=== PATIENT | female | born 1985 | race Caucasian/White ===

== ENCOUNTER 2021-07-18 08:21 | Observation (INO) | payer OTHER ==
[~2021-07-18] VITALS: Ht 170.2 cm; Wt 85.0 kg
--- NOTE | 2021-07-18 08:41 | ED.ADGEN ---
Past Medical History Past Medical History: Migraines Additional Past Medical Histor: Celiac disease General Adult EDM: Chief Complaint: CHEST WALL PAIN HPI: HPI: Patient is a 36-year-old female who arrives ambulatory to the emergency department complaining of substernal chest pain which began yesterday evening. Patient describes her pain as substernal in nature with radiation into her back at the left side. Patient also states that she has radiation across the left side of her chest. Patient states this pain became more robust this morning and the patient is not experiencing shortness of air. She states that her shortness of air is increased with talking in excess or exertion. The patient does report to receiving her booster shot for coronavirus yesterday afternoon however she tolerated that very well did not have any symptoms. She denies any history of fever or cardiac disease otherwise. She further denies any history of blood clots, cough or congestion. She additionally denies any history of fever. She is awake, alert and uncomfortable appearing. Review of Systems: Review of Systems: Constitutional: Denies fever or chills. [] Eyes: Denies change in visual acuity. [] HENT: Denies nasal congestion or sore throat. [] Respiratory: Reports exertional dyspnea. Denies cough. [] Cardiovascular: Reports chest pain and exertional dyspnea. [] GI: Denies abdominal pain, nausea, vomiting, bloody stools or diarrhea. [] : Denies dysuria. [] Musculoskeletal: Denies back pain or joint pain. [] Integument: Denies rash. [] Neurologic: Denies headache, focal weakness or sensory changes. [] Endocrine: Denies polyuria or polydipsia. [] Lymphatic: Denies swollen glands. [] Psychiatric: Denies depression or anxiety. [] Current Medications: Current Medications Medications (Trade) Dose Ordered Sig/Monserrat Start Time Stop Time Status Last Admin Dose Admin Aspirin (Aspirin Chewable) 324 mg 1X ONCE 07/18/21 08:45 07/18/21 08:46 DC 07/18/21 08:52 324 MG Morphine Sulfate (Morphine Sulfate) 4 mg PRN Q2HR PRN 07/18/21 10:00 07/19/21 09:59 Ondansetron HCl (Zofran) 4 mg PRN Q8HRS PRN 07/18/21 10:00 07/19/21 09:59 Allergies: Allergies: Allergies Coded Allergies Type Severity Reaction Last Updated Verified Penicillins Allergy Intermediate 07/18/21 Yes Sulfa (Sulfonamide Antibiotics) Allergy Intermediate 07/18/21 Yes latex Allergy Intermediate 07/18/21 Yes Physical Exam: PE: Constitutional: Uncomfortable appearing. Well developed, well nourished, non- toxic appearance. [] HENT: Normocephalic, atraumatic, bilateral external ears normal, oropharynx moist, no oral exudates, nose normal. [] Eyes: PERRLA, EOMI, conjunctiva normal, no discharge. [] Neck: Normal range of motion, no tenderness, supple, no stridor. [] Cardiovascular:Heart rate regular rhythm, no murmur [] Lungs & Thorax: Mild respiratory distress. Bilateral breath sounds clear to auscultation [] Abdomen: Bowel sounds normal, soft, no tenderness, no masses, no pulsatile masses. [] Skin: Warm, dry, no erythema, no rash. [] Back: No tenderness, no CVA tenderness. [] Extremities: No tenderness, no cyanosis, no clubbing, ROM intact, no edema. [] Neurologic: Alert and oriented X 3, normal motor function, normal sensory f unction, no focal deficits noted. [] Psychologic: Affect normal, judgement normal, mood normal. [] Current Patient Data: Labs: Laboratory Tests Test 07/18/21 08:40 White Blood Count 6.2 x10^3/uL (4.0-11.0) Red Blood Count 4.59 x10^6/uL (3.50-5.40) Hemoglobin 13.5 g/dL (12.0-15.5) Hematocrit 40.0 % (36.0-47.0) Mean Corpuscular Volume 87 fL (79-100) Mean Corpuscular Hemoglobin 29 pg (25-35) Mean Corpuscular Hemoglobin Concent 34 g/dL (31-37) Red Cell Distribution Width 14.0 % (11.5-14.5) Platelet Count 221 x10^3/uL (140-400) Neutrophils (%) (Auto) 74 % (31-73) H Lymphocytes (%) (Auto) 18 % (24-48) L Monocytes (%) (Auto) 5 % (0-9) Eosinophils (%) (Auto) 3 % (0-3) Basophils (%) (Auto) 0 % (0-3) Neutrophils # (Auto) 4.6 x10^3/uL (1.8-7.7) Lymphocytes # (Auto) 1.1 x10^3/uL (1.0-4.8) Monocytes # (Auto) 0.3 x10^3/uL (0.0-1.1) Eosinophils # (Auto) 0.2 x10^3/uL (0.0-0.7) Basophils # (Auto) 0.0 x10^3/uL (0.0-0.2) Maternal Serum HCG Beta Subunit < 1 mIU/mL (0-5) Sodium Level 139 mmol/L (136-145) Potassium Level 3.5 mmol/L (3.5-5.1) Chloride Level 104 mmol/L (98-107) Carbon Dioxide Level 27 mmol/L (21-32) Anion Gap 8 (6-14) Blood Urea Nitrogen 15 mg/dL (7-20) Creatinine 1.0 mg/dL (0.6-1.0) Estimated GFR (Cockcroft-Gault) 62.1 BUN/Creatinine Ratio 15 (6-20) Glucose Level 95 mg/dL (70-99) Calcium Level 8.7 mg/dL (8.5-10.1) Total Bilirubin 0.4 mg/dL (0.2-1.0) Aspartate Amino Transferase (AST) 18 U/L (15-37) Alanine Aminotransferase (ALT) 23 U/L (14-59) Alkaline Phosphatase 60 U/L (46-116) Troponin I Quantitative < 0.017 ng/mL (0.000-0.055) RC-Hsc-J-Type Natriuretic Peptide 24 pg/mL (0-124) Total Protein 7.9 g/dL (6.4-8.2) Albumin 3.8 g/dL (3.4-5.0) Albumin/Globulin Ratio 0.9 (1.0-1.7) L Laboratory Tests 07/18/21 08:40 Laboratory Tests 07/18/21 08:40 Vital Signs: Vital Signs Date Time Temp Pulse Resp B/P (MAP) Pulse Ox O2 Delivery O2 Flow Rate FiO2 07/18/21 08:34 97.8 77 18 136/84 (101) 99 Room Air 97.8 EKG: EKG: [] EKG was obtained at 8:30 AM and reveals what appears to be atrial flutter wit h a ventricular rate of 76 bpm. Morphology associated with the EKG is very poor however there are no definitive ST/T wave changes to denote ischemia. Heart Score: C/O Chest Pain: Yes HEART Score for Chest Pain: HEART Score for Chest Pain Response (Comments) Value History Slighlty/Non-Suspicious 0 ECG Nonspecific Repolarizatio 1 Age < 45 0 Risk Factors No Risk Factors 0 Troponin < Normal Limit 0 Total 1 Risk Factors: Risk Factors: DM, Current or recent (<one month) smoker, HTN, HLP, family history of CAD, obesity. Risk Scores: Score 0 - 3: 2.5% MACE over next 6 weeks - Discharge Home Score 4 - 6: 20.3% MACE over next 6 weeks - Admit for Clinical Observation Score 7 - 10: 72.7% MACE over next 6 weeks - Early Invasive Strategies Radiology/Procedures: Radiology/Procedures: [] Impression: [facility] [address] [place], [place] [id number] IMAGING REPORT Signed PATIENT: HILDA REYES ACCOUNT: [id number] : 1985 LOCATION: ER AGE: 36 SEX: F EXAM STATUS: PRE ER ORD. PHYSICIAN: REMI SUE DO REASON: pain PROCEDURE: PORTABLE CHEST 1V XR CHEST 1V CLINICAL INDICATIONS: Chest pain. Findings: No acute lung infiltrate or pleural effusion or pulmonary edema or lung mass or pneumothorax is seen. The heart size, pulmonary vasculature, mediastinum and both marlon are unremarkable. IMPRESSION: No acute radiographic abnormality is seen. Electronically signed by: Alexandru Glasgow MD (07/18/2021 8:54 AM) [id number] DICTATED and SIGNED BY: ALEXANDRU GLASGOW MD DATE: 07/18/21 [id number] 0 Course & Med Decision Making: Course & Med Decision Making Pertinent Labs and Imaging studies reviewed. (See chart for details) [] Dragon Disclaimer: Dragon Disclaimer: This electronic medical record was generated, in whole or in part, using a voice recognition dictation system. Departure Departure Impression: Primary Impression: Chest pain Additional Impressions: Atrial flutter Exertional dyspnea Person under investigation for COVID-19 Disposition: 09 ADMITTED INPATIENT Admitting Physician: BUSHRA Condition: STABLE Problem Qualifiers REMI SUE DO Jul 18, 2021 08:41
[2021-07-18] MEDS ORDERED: ASPIRIN CHEWABLE 81 MG TABLET. PO ONE (08:45)
--- NOTE | 2021-07-18 08:57 | RAD ---
XR CHEST 1V CLINICAL INDICATIONS: Chest pain. Findings: No acute lung infiltrate or pleural effusion or pulmonary edema or lung mass or pneumothora x is seen. The heart size, pulmonary vasculature, mediastinum and both marlon are unremarkable. IMPRESSION: No acute radiographic abnormality is seen. Electronically signed by: Josh Glasgow MD (07/18/2021 8:54 AM) [id number]
[2021-07-18 09:03] LABS: CALCIUM 8.7 mg/dL (8.5-10.1); GFR 62.1; POTASSIUM 3.5 mmol/L (3.5-5.1)
[2021-07-18 09:08] LABS: ALBUMIN 3.8 g/dL (3.4-5.0); BASO % 0 % (0-3); EOS # 0.2 x10^3/uL (0.0-0.7); EOS % 3 % (0-3); HEMOGLOBIN 13.5 g/dL (12.0-15.5); LYMPH # 1.1 x10^3/uL (1.0-4.8); LYMPH % 18 % (24-48); MEAN CORPUSCULAR HEMOGLOBIN 29 pg (25-35); MEAN CORPUSCULAR HGB CONC 34 g/dL (31-37); MEAN CORPUSCULAR VOLUME 87 fL (79-100); MONO # 0.3 x10^3/uL (0.0-1.1); MONO % 5 % (0-9); NEUT # 4.6 x10^3/uL (1.8-7.7); NEUT % 74 % (31-73); PLATELET COUNT 221 x10^3/uL (140-400); RED BLOOD COUNT 4.59 x10^6/uL (3.50-5.40); TOTAL PROTEIN 7.9 g/dL (6.4-8.2); WHITE BLOOD COUNT 6.2 x10^3/uL (4.0-11.0)
[2021-07-18 09:09] LABS: ALBUMIN/GLOBULIN RATIO 0.9 (1.0-1.7); TOTAL BILIRUBIN 0.4 mg/dL (0.2-1.0)
[2021-07-18] MEDS ORDERED: MORPHINE SULFATE 4 MG/ML INJ. IVP PRN (10:00)
[2021-07-18] MEDS ORDERED: ONDANSETRON PF 4 MG/2 ML VIAL. IVP PRN (10:00)
[2021-07-18] MEDS ORDERED: IOHEXOL 350 MG/ML 100 ML VIAL. IV ONE (10:00)
--- NOTE | 2021-07-18 10:05 | PDOC1 ---
History and Physical Date of Admission Date of Admission DATE: 07/18/21 TIME: 10:04 Identification/Chief Complaint Chief Complaint Chest pain Source Source: Patient History of Present Illness History of Present Illness Ms Crowder is a 36yo female with PMHx GERD on omeprazole, celiac dz, migraines who presents to ED via private vehicle follow-up accompanied by her complaining of substernal chest pain radiating to her back. Pain is sharp with some associated dyspnea on exertion and fatigue. Rated 3 out of 10 at worst. Relieved with rest. Initial onset was 1900 on 07/17/2021 after dinner. She does note that she had her COVID-19 booster vaccination at 1300 on 07/17/2021 She took her home omeprazole assuming this was likely related to reflux but awoke with the pain still present and substernal with new radiation to her left scapula with associated nausea and dyspnea on exertion and therefore came to the ED for further assessment. She does note a family history of coronary artery disease in her maternal grandfather and hypertension in her mother and lupus in her paternal aunt and multiple sclerosis in her paternal grandfather. She has never seen a agent telegrapher for her GERD and has been maintained on 20 mg of omeprazole which she tried to get off of 8 months ago when recurrence of her GERD symptoms and increase the dosing to 40 mg on her own. WBC 6.2, Hb 13.5, platelets 221, NA 139, K3.5, BUN 15, CR 1, hCG negative, troponin 0, NT proBNP 24. EKG rate of 76 bpm sinus with significant baseline artifact no significant ST segment abnormalities or T wave inversions. QTC 411 otherwise normal axes and intervals Chest radiograph no acute abnormalities CTPA with no acute pulmonary embolism. Discussed with the ED physician to admit for cardiac observation with cardiology consultation. Discussed with cardiology ASSIGNMENT OFFICER as well. Past Medical History GI: GERD Past Surgical History Past Surgical History: No pertinent history Family History Family History She does note a family history of coronary artery disease in her maternal grandfather and hypertension in her mother and lupus in her paternal aunt and multiple sclerosis in her paternal grandfather. Family History: Coronary Artery Disease, Hypertension Social History Smoke: No ALCOHOL: none Drugs: None Current Problem List Problem List Problems Medical Problems: (1) Atrial flutter Status: Acute (2) Chest pain Status: Acute (3) Exertional dyspnea Status: Acute (4) Person under investigation for COVID-19 Status: Acute Current Medications Current Medications Current Medications Aspirin (Aspirin Chewable) 324 mg 1X ONCE PO Last administered on 07/18/21at 08:52; Start 07/18/21 at 08:45; Stop 07/18/21 at 08:46; Status DC Ondansetron HCl (Zofran) 4 mg PRN Q8HRS PRN IVP NAUSEA/VOMITING; Start 07/18/21 at 10:00; Stop 07/19/21 at 09:59 Morphine Sulfate (Morphine Sulfate) 4 mg PRN Q2HR PRN IVP PAIN; Start 07/18/21 at 10:00; Stop 07/19/21 at 09:59 Iohexol (Omnipaque 350 Mg/ml) 100 ml 1X ONCE IV ; Start 07/18/21 at 10:00; Stop 07/18/21 at 10:01; Status DC Info (CONTRAST GIVEN -- Rx MONITORING) 1 each PRN DAILY PRN MC SEE COMMENTS; Start 07/18/21 at 10:15; Stop 07/20/21 at 10:14 Allergies Allergies: Coded Allergies: Penicillins (Verified Allergy, Intermediate, 07/18/21) Sulfa (Sulfonamide Antibiotics) (Verified Allergy, Intermediate, 07/18/21) latex (Verified Allergy, Intermediate, 07/18/21) ROS General: YES: Fatigue, Malaise; No: Chills, Night Sweats, Appetite, Other PSYCHOLOGICAL ROS: No: Anxiety, Behavioral Disorder, Concentration difficultie, Decreased libido, Depression, Disorientation, Hallucinations, Hostility, Irritablity, Memory difficulties, Mood Swings, Obsessive thoughts, Physical abuse, Sexual abuse, Sleep disturbances, Suicidal ideation, Other Eyes: No Blurry vision, No Decreased vision, No Double vision, No Dry eyes, No Excessive tearing, No Eye Pain, No Itchy Eyes, No Loss of vision, No Photophobia, No Scotomata, No Uses contacts, No Uses glasses, No Other HEENT: No: Heacaches, Visual Changes, Hearing change, Nasal congestion, Nasal discharge, Oral lesions, Sinus pain, Sore Throat, Epistaxis, Sneezing, Snoring, Tinnitus, Vertigo, Vocal changes, Other ALLERGY AND IMMUNOLOGY: No: Hives, Insect Bite Sensitivity, Itchy/Watery Eyes, Nasal Congestion, Post Nasal Drip, Seasonal Allergies, Other Hematological and Lymphatic: No: Bleeding Problems, Blood Clots, Blood Transfusions, Brusing, Night Sweats, Pallor, Swollen Lymph Nodes, Other ENDOCRINE: No: Breast Changes, Galactorrhea, Hair Pattern Changes, Hot Flashes, Malaise/lethargy, Mood Swings, Palpitations, Polydipsia/polyuria, Skin Changes, Temperature Intolerance, Unexpected Weight Changes, Other Breast: No New/Changing Breast Lumps, No Nipple changes, No Nipple discharge, No Other Respiratory: YES: Shortness of breath; No: Cough, Hemoptysis, Orthopnea, Pleuritic Pain, SOB with excertion, Sputum Changes, Stridor, Tachypnea, Wheezing, Other Cardiovascular: yes Chest Pain; No Palpitations, No Orthopnea, No Paroxysmal Noc. Dyspnea, No Edema, No Lt Headedness, No Other Gastrointestinal: Yes Nausea; No Vomiting, No Abdominal Pain, No Diarrhea, No Constipation, No Melena, No Hematochezia, No Other Genitourinary: No Dysuria, No Frequency, No Incontinence, No Hematuria, No Retention, No Discharge, No Urgency, No Pain, No Flank Pain, No Other, No , No , No , No , No , No , No Musculoskeletal: No Gait Disturbance, No Joint Pain, No Joint Stiffness, No Joint Swelling, No Muscle Pain, No Muscular Weakness, No Pain In:, No Swelling In:, No Other Neurological: No Behavorial Changes, No Bowel/Bladder ControlChng, No Confusion, No Dizziness, No Gait Disturbance, No Headaches, No Impaired Coord/balance, No Memory Loss, No Numbness/Tingling, No Seizures, No Speech Problems, No Tremors, No Visual Changes, No Weakness, No Other Skin: No Dry Skin, No Eczema, No Hair Changes, No Lumps, No Mole Changes, No Mottling, No Nail Changes, No Pruritus, No Rash, No Skin Lesion Changes, No Other, No Acne Physical Exam General: Alert, Oriented X3, Cooperative, mild distress HEENT: Atraumatic, PERRLA, EOMI, Mucous membr. moist/pink, Other (Left eye lateral strabismus) Lungs: Clear to auscultation, Normal air movement Heart: S1S2, RRR, no thrills, no rubs, no gallops, no murmurs Abdomen: Normal bowel sounds, Soft, No tenderness, No hepatosplenomegaly, No masses Rectal Exam: not examined Extremities: No clubbing, No cyanosis, No edema, Normal pulses, No tenderness/swelling Skin: No rashes, No breakdown, No significant lesion Neuro: Normal gait, Normal speech, Strength at 5/5 X4 ext, Normal tone, Sensation intact, Cranial nerves 3-12 NL, Reflexes 2+ Psych/Mental Status: Mental status NL, Mood NL Vitals Vitals Vital Signs Date Time Temp Pulse Resp B/P (MAP) Pulse Ox O2 Delivery O2 Flow Rate FiO2 07/18/21 08:34 97.8 77 18 136/84 (101) 99 Room Air 97.8 Labs Labs Laboratory Tests Test 07/18/21 08:40 White Blood Count 6.2 x10^3/uL (4.0-11.0) Red Blood Count 4.59 x10^6/uL (3.50-5.40) Hemoglobin 13.5 g/dL (12.0-15.5) Hematocrit 40.0 % (36.0-47.0) Mean Corpuscular Volume 87 fL (79-100) Mean Corpuscular Hemoglobin 29 pg (25-35) Mean Corpuscular Hemoglobin Concent 34 g/dL (31-37) Red Cell Distribution Width 14.0 % (11.5-14.5) Platelet Count 221 x10^3/uL (140-400) Neutrophils (%) (Auto) 74 % (31-73) Lymphocytes (%) (Auto) 18 % (24-48) Monocytes (%) (Auto) 5 % (0-9) Eosinophils (%) (Auto) 3 % (0-3) Basophils (%) (Auto) 0 % (0-3) Neutrophils # (Auto) 4.6 x10^3/uL (1.8-7.7) Lymphocytes # (Auto) 1.1 x10^3/uL (1.0-4.8) Monocytes # (Auto) 0.3 x10^3/uL (0.0-1.1) Eosinophils # (Auto) 0.2 x10^3/uL (0.0-0.7) Basophils # (Auto) 0.0 x10^3/uL (0.0-0.2) Maternal Serum HCG Beta Subunit < 1 mIU/mL (0-5) Sodium Level 139 mmol/L (136-145) Potassium Level 3.5 mmol/L (3.5-5.1) Chloride Level 104 mmol/L (98-107) Carbon Dioxide Level 27 mmol/L (21-32) Anion Gap 8 (6-14) Blood Urea Nitrogen 15 mg/dL (7-20) Creatinine 1.0 mg/dL (0.6-1.0) Estimated GFR (Cockcroft-Gault) 62.1 BUN/Creatinine Ratio 15 (6-20) Glucose Level 95 mg/dL (70-99) Calcium Level 8.7 mg/dL (8.5-10.1) Total Bilirubin 0.4 mg/dL (0.2-1.0) Aspartate Amino Transf (AST/SGOT) 18 U/L (15-37) Alanine Aminotransferase (ALT/SGPT) 23 U/L (14-59) Alkaline Phosphatase 60 U/L (46-116) Troponin I Quantitative < 0.017 ng/mL (0.000-0.055) EL-Kqi-X-Type Natriuretic Peptide 24 pg/mL (0-124) Total Protein 7.9 g/dL (6.4-8.2) Albumin 3.8 g/dL (3.4-5.0) Albumin/Globulin Ratio 0.9 (1.0-1.7) Laboratory Tests Test 07/18/21 08:40 White Blood Count 6.2 x10^3/uL (4.0-11.0) Red Blood Count 4.59 x10^6/uL (3.50-5.40) Hemoglobin 13.5 g/dL (12.0-15.5) Hematocrit 40.0 % (36.0-47.0) Mean Corpuscular Volume 87 fL (79-100) Mean Corpuscular Hemoglobin 29 pg (25-35) Mean Corpuscular Hemoglobin Concent 34 g/dL (31-37) Red Cell Distribution Width 14.0 % (11.5-14.5) Platelet Count 221 x10^3/uL (140-400) Neutrophils (%) (Auto) 74 % (31-73) Lymphocytes (%) (Auto) 18 % (24-48) Monocytes (%) (Auto) 5 % (0-9) Eosinophils (%) (Auto) 3 % (0-3) Basophils (%) (Auto) 0 % (0-3) Neutrophils # (Auto) 4.6 x10^3/uL (1.8-7.7) Lymphocytes # (Auto) 1.1 x10^3/uL (1.0-4.8) Monocytes # (Auto) 0.3 x10^3/uL (0.0-1.1) Eosinophils # (Auto) 0.2 x10^3/uL (0.0-0.7) Basophils # (Auto) 0.0 x10^3/uL (0.0-0.2) Maternal Serum HCG Beta Subunit < 1 mIU/mL (0-5) Sodium Level 139 mmol/L (136-145) Potassium Level 3.5 mmol/L (3.5-5.1) Chloride Level 104 mmol/L (98-107) Carbon Dioxide Level 27 mmol/L (21-32) Anion Gap 8 (6-14) Blood Urea Nitrogen 15 mg/dL (7-20) Creatinine 1.0 mg/dL (0.6-1.0) Estimated GFR (Cockcroft-Gault) 62.1 BUN/Creatinine Ratio 15 (6-20) Glucose Level 95 mg/dL (70-99) Calcium Level 8.7 mg/dL (8.5-10.1) Total Bilirubin 0.4 mg/dL (0.2-1.0) Aspartate Amino Transf (AST/SGOT) 18 U/L (15-37) Alanine Aminotransferase (ALT/SGPT) 23 U/L (14-59) Alkaline Phosphatase 60 U/L (46-116) Troponin I Quantitative < 0.017 ng/mL (0.000-0.055) AE-Ibz-N-Type Natriuretic Peptide 24 pg/mL (0-124) Total Protein 7.9 g/dL (6.4-8.2) Albumin 3.8 g/dL (3.4-5.0) Albumin/Globulin Ratio 0.9 (1.0-1.7) Images Images Chest radiograph: No acute lung infiltrate or pleural effusion or pulmonary edema or lung mass or pneumothorax is seen. The heart size, pulmonary vasculature, mediastinum and both marlon are unremarkable. IMPRESSION: No acute radiographic abnormality is seen. CTPA: Pulmonary Vasculature: No evidence of main, lobar, or segmental pulmonary arterial thrombus. Lung Parenchyma, Pleura, and Airways: No focal consolidation. Mild scattered subsegmental atelectasis. No suspicious pulmonary nodule. No pleural effusion. Central airways patent. Lower Neck, Lymph Nodes, and Mediastinum: Visualized thyroid gland within normal limits. No mediastinal, hilar, or axillary lymphadenopathy. Heart, Pericardium, and Thoracic Vessels: Cardiac chambers normal in size. No pericardial effusion. Thoracic aorta within normal limits. No coronary artery atherosclerotic calcifications are noted, although the study is not optimized for coronary assessment. Bones and Soft Tissues: No evidence of acute osseous abnormality. Upper Abdomen: Partially visualized upper abdomen unremarkable. IMPRESSION: No evidence of main, lobar, or segmental pulmonary embolism. VTE Prophylaxis Ordered VTE Prophylaxis Devices: No VTE Pharmacological Prophylaxi: No Assessment/Plan Assessment/Plan A/P: Chest pain -atypical for cardiac. Seems to be related to severe GERD. Will rule out myocarditis with inflammatory markers troponins echocardiogram cardiology consultation Shortness of breath - possibly related to above and LPRD as well as some anxiety related to COVID 19 booster shot GERD - on PPI, given outpatient GI referral given this may be more severe with possible LPRD Migraines - counseled on cardiac side effects with triptan use Celiac dz? - cont gluten free diet FEN - Regular diet PPX - PPI, ambulatory FULL CODE Dispo - observation Justifications for Admission Other Justification CATHERINE TEJADA MD Jul 18, 2021 10:05
[2021-07-18] MEDS ORDERED: CONTRAST GIVEN. MC PRN (10:15)
--- NOTE | 2021-07-18 10:41 | RAD ---
EXAMINATION: CTA CHEST CLINICAL HISTORY: Chest pain and shortness of breath Technique: Spiral CT acquisition of the chest from the thoracic inlet to the upper abdomen following IV contrast with coronal and sagittal reformatted images also provided for review. 3D maximum intensi ty projection images also performed. CT Dose Reduction Employed: One or more of the following individualized dose reduction techniques wer e utilized for this examination: 1. Automated exposure control 2. Adjustment of the mA and/or kV ac cording to patient size 3. Use of iterative reconstruction technique. Comparison: Chest radiograph same day FINDINGS: Pulmonary Vasculature: No evidence of main, lobar, or segmental pulmonary arterial thrombus. Lung Parenchyma, Pleura, and Airways: No focal consolidation. Mild scattered subsegmental atelectasis . No suspicious pulmonary nodule. No pleural effusion. Central airways patent. Lower Neck, Lymph Nodes, and Mediastinum: Visualized thyroid gland within normal limits. No mediastin al, hilar, or axillary lymphadenopathy. Heart, Pericardium, and Thoracic Vessels: Cardiac chambers normal in size. No pericardial effusion. T horacic aorta within normal limits. No coronary artery atherosclerotic calcifications are noted, alth ough the study is not optimized for coronary assessment. Bones and Soft Tissues: No evidence of acute osseous abnormality. Upper Abdomen: Partially visualized upper abdomen unremarkable. IMPRESSION: No evidence of main, lobar, or segmental pulmonary embolism. Electronically signed by: Ethan Hayes DO (07/18/2021 10:38 AM) [facility], [place]
[2021-07-18] MEDS ORDERED: PANTOPRAZOLE IV PUSH 40 MG VIAL. IVP ONE (11:00)
--- NOTE | 2021-07-18 12:12 | PDOC2 ---
CHRISTIAN FINE DISMANTLER 07/18/21 1212: CARDIAC CONSULT DATE OF CONSULT Date of Consult DATE: 07/18/21 TIME: 12:10 REASON FOR CONSULT Reason for Consult: Chest pain REFERRING PHYSICIAN Referring Physician: Dr. Chi SOURCE Source: Chart review, Patient HISTORY OF PRESENT ILLNESS HISTORY OF PRESENT ILLNESS This is a 36 yo female who presented secondary to chest pain. Patient reports feeling as usual yesterday. Received COVID booster yesterday afternoon. Around 7pm last night, but having pressure in her central chest that radiated to her left chest. Radiated to her upper back. Reported feeling short of breath, dizzy, and slightly nauseated. This morning, pain persisted so she came to the ED for further evaluation and treatment. Pain seems to be worse with deep breathing. SOA has improved this am. PAST MEDICAL HISTORY CENTRAL NERVOUS SYSTEM: Migraine GI: GERD, Other (Celiac Disease) PAST SURGICAL HISTORY Past Surgical History: No pertinent history FAMILY HISTORY Family History: Diabetes, Heart Disease, Hypertension SOCIAL HISTORY Smoke: No ALCOHOL: none Drugs: None Lives: with Family CURRENT MEDICATIONS CURRENT MEDICATIONS Current Medications Medications (Trade) Dose Ordered Sig/Monserrat Route PRN Reason Start Time Stop Time Status Last Admin Dose Admin Aspirin (Aspirin Chewable) 324 mg 1X ONCE PO 07/18/21 08:45 07/18/21 08:46 DC 07/18/21 08:52 Iohexol (Omnipaque 350 Mg/ml) 100 ml 1X ONCE IV 07/18/21 10:00 07/18/21 10:01 DC 07/18/21 10:14 ALLERGIES ALLERGIES: Coded Allergies: Penicillins (Verified Allergy, Intermediate, 07/18/21) Sulfa (Sulfonamide Antibiotics) (Verified Allergy, Intermediate, 07/18/21) latex (Verified Allergy, Intermediate, 07/18/21) ROS Review of System 14 point ROS conducted with pertinent positives noted above HPI PHYSICAL EXAM General: Alert, Oriented X3, Cooperative, No acute distress HEENT: Atraumatic Lungs: Clear to auscultation Heart: Regular rate Abdomen: Soft, No tenderness Extremities: No edema, Normal pulses Skin: No significant lesion Neuro: Normal speech, Sensation intact Psych/Mental Status: Mental status NL, Mood NL MUSCULOSKELETAL: Osteoarthritic changes both hands VITALS/I&O VITALS/I&O: Vital Signs Date Time Temp Pulse Resp B/P (MAP) Pulse Ox O2 Delivery O2 Flow Rate FiO2 07/18/21 11:21 64 18 128/62 (84) 97 Room Air 07/18/21 08:34 97.8 97.8 LABS Lab: Laboratory Tests Test 07/18/21 08:40 07/18/21 10:30 White Blood Count 6.2 x10^3/uL (4.0-11.0) Red Blood Count 4.59 x10^6/uL (3.50-5.40) Hemoglobin 13.5 g/dL (12.0-15.5) Hematocrit 40.0 % (36.0-47.0) Mean Corpuscular Volume 87 fL (79-100) Mean Corpuscular Hemoglobin 29 pg (25-35) Mean Corpuscular Hemoglobin Concent 34 g/dL (31-37) Red Cell Distribution Width 14.0 % (11.5-14.5) Platelet Count 221 x10^3/uL (140-400) Neutrophils (%) (Auto) 74 % (31-73) H Lymphocytes (%) (Auto) 18 % (24-48) L Monocytes (%) (Auto) 5 % (0-9) Eosinophils (%) (Auto) 3 % (0-3) Basophils (%) (Auto) 0 % (0-3) Neutrophils # (Auto) 4.6 x10^3/uL (1.8-7.7) Lymphocytes # (Auto) 1.1 x10^3/uL (1.0-4.8) Monocytes # (Auto) 0.3 x10^3/uL (0.0-1.1) Eosinophils # (Auto) 0.2 x10^3/uL (0.0-0.7) Basophils # (Auto) 0.0 x10^3/uL (0.0-0.2) Maternal Serum HCG Beta Subunit < 1 mIU/mL (0-5) Sodium Level 139 mmol/L (136-145) Potassium Level 3.5 mmol/L (3.5-5.1) Chloride Level 104 mmol/L (98-107) Carbon Dioxide Level 27 mmol/L (21-32) Anion Gap 8 (6-14) Blood Urea Nitrogen 15 mg/dL (7-20) Creatinine 1.0 mg/dL (0.6-1.0) Estimated GFR (Cockcroft-Gault) 62.1 BUN/Creatinine Ratio 15 (6-20) Glucose Level 95 mg/dL (70-99) Calcium Level 8.7 mg/dL (8.5-10.1) Total Bilirubin 0.4 mg/dL (0.2-1.0) Aspartate Amino Transferase (AST) 18 U/L (15-37) Alanine Aminotransferase (ALT) 23 U/L (14-59) Alkaline Phosphatase 60 U/L (46-116) Troponin I Quantitative < 0.017 ng/mL (0.000-0.055) C-Reactive Protein, Quantitative 1.3 mg/L (0-3.3) UW-Doa-I-Type Natriuretic Peptide 24 pg/mL (0-124) Total Protein 7.9 g/dL (6.4-8.2) Albumin 3.8 g/dL (3.4-5.0) Albumin/Globulin Ratio 0.9 (1.0-1.7) L SARS-CoV-2 Antigen (Rapid) Negative (NEGATIVE) Laboratory Tests 07/18/21 08:40 Laboratory Tests 07/18/21 08:40 ASSESSMENT/PLAN ASSESSMENT/PLAN 1. Chest pain, atypical. Initial troponin negative. Most probably pleuritic in nature. S/p COVID booster 07/17/21 2. GERD Recommendations Trend trop Echo to assess LV systolic function VERNON PRABHAKAR MD 07/18/212038: CARDIAC CONSULT ASSESSMENT/PLAN ASSESSMENT/PLAN Patient seen and examined. Agree with BOAT CARPENTER's assessment and plan. CP with atypical features and pleuritic in nature HI ruled out 2D echo showed normal LVF without any WMA Recommend NSAID's prn and if symptoms persist consider stress test Thank you for your consultation CHRISTIAN FINE APRN Jul 18, 2021 12:12 VERNON PRABHAKAR MD Jul 18, 2021 20:39
[2021-07-18 15:00] VITALS: BP 107/71
[2021-07-18] MEDS ORDERED: LANS30CA PO (16:52)
--- NOTE | 2021-07-18 16:53 | CARD ---
MR#: [id number] Date of Study: 07/18/2021 Ordering Physician: CATHERINE TEJADA, Referring Physician: CATHERINE TEJADA, Tech: Joe Ricks [facility] APPROVED REPORT EXAM: Two-dimensional and M-mode echocardiogram with Doppler and color Doppler. Other Information Quality : AverageHR: 71bpm INDICATION Chest Pain RISK FACTORS Hypertension 2D DIMENSIONS Left Atrium(2D)3.0 (1.6-4.0cm)IVSd0.9 (0.7-1.1cm) Aortic Root(2D)2.9 (2.0-3.7cm)LVDd5.1 (3.9-5.9cm) LVOT Diameter2.3 (1.8-2.4cm)PWd0.8 (0.7-1.1cm) LVDs3.2 (2.5-4.0cm)FS (%) 38.0 % SV85.2 mlLVEF(%)67.8 (>50%) Mitral Valve MV E Dqkbupps23.6cm/sMV E Peak Gr.3mmHg MV DECEL [id number] E Mean Gr.2mmHg TDI Lateral E' P. V14.80cm/sMedial E' P. V9.85cm/s E/Lateral E'4.7E/Medial E'7.1 Tricuspid Valve TR P. [id number]/sTR Peak Gr.31mmHg Pulmonary Vein S1 Mqgpzxlr81.5cm/sS2 Xncqikge51.84cm/s D2 Fzsocbyu18.8cm/s LEFT VENTRICLE The left ventricle is normal size. There is normal left ventricular wall thickness. The left ventricu lar systolic function is normal. The ejection fraction is 55-60%. There is normal LV segmental wall m otion. No left ventricle thrombus noted on this study. There is no ventricular septal defect visualiz ed. There is no left ventricular aneurysm. There is no mass noted in the left ventricle. RIGHT VENTRICLE The right ventricle is normal size. There is normal right ventricular wall thickness. The right ventr icular systolic function is normal. ATRIA The left atrium size is normal. The right atrium size is normal. The interatrial septum is intact wit h no evidence for an atrial septal defect or patent foramen ovale as noted on 2-D or Doppler imaging. AORTIC VALVE The aortic valve is normal in structure and function. The aortic valve is trileaflet. Doppler and Col or Flow revealed no significant aortic regurgitation. There is no significant aortic valvular stenosi s. There is no aortic valvular vegetation. MITRAL VALVE The mitral valve is normal in structure and function. There is no mitral valve stenosis. Doppler and Color Flow revealed no mitral valve regurgitation noted. TRICUSPID VALVE The tricuspid valve is normal in structure and function. Doppler and Color Flow revealed no tricuspid valve regurgitation noted. There is no tricuspid valve prolapse or vegetation. There is no tricuspid valve stenosis. PULMONIC VALVE The pulmonary valve is normal in structure and function. Doppler and Color Flow revealed no pulmonic valvular regurgitation. There is no pulmonic valvular stenosis. GREAT VESSELS The aortic root is normal in size. The ascending aorta is normal in size. The pulmonary artery is nor mal. The IVC is normal in size and collapses >50% with inspiration. PERICARDIAL EFFUSION There is no pleural effusion. There is no evidence of significant pericardial effusion. Critical Notification Critical Value: No <Conclusion> The left ventricular systolic function is normal. The ejection fraction is 55-60%. There is normal LV segmental wall motion. There is no evidence of significant pericardial effusion. Signed by : Rj Zheng, Electronically Approved : 07/18/2021 16:53:18
--- NOTE | 2021-07-18 16:54 | PDOC3 ---
Discharge Summary Visit Information Date of Admission: Jul 18, 2021 Date of Discharge: Jul 18, 2021 Admitting Diagnosis: Chest pain Final Diagnosis Problems Medical Problems: (1) Chest pain Status: Acute (2) Exertional dyspnea Status: Acute (3) Person under investigation for COVID-19 Status: Acute Brief Hospital Course Allergies Allergies Coded Allergies Type Severity Reaction Last Updated Verified Penicillins Allergy Intermediate 07/18/21 Yes Sulfa (Sulfonamide Antibiotics) Allergy Intermediate 07/18/21 Yes latex Allergy Intermediate 07/18/21 Yes Vital Signs Vital Signs Date Time Temp Pulse Resp B/P (MAP) Pulse Ox O2 Delivery O2 Flow Rate FiO2 07/18/21 15:00 98.1 74 18 107/71 (83) 97 Room Air 98.1 Lab Results Laboratory Tests Test 07/18/21 08:40 07/18/21 10:30 07/18/21 14:40 White Blood Count 6.2 x10^3/uL (4.0-11.0) Red Blood Count 4.59 x10^6/uL (3.50-5.40) Hemoglobin 13.5 g/dL (12.0-15.5) Hematocrit 40.0 % (36.0-47.0) Mean Corpuscular Volume 87 fL (79-100) Mean Corpuscular Hemoglobin 29 pg (25-35) Mean Corpuscular Hemoglobin Concent 34 g/dL (31-37) Red Cell Distribution Width 14.0 % (11.5-14.5) Platelet Count 221 x10^3/uL (140-400) Neutrophils (%) (Auto) 74 % (31-73) Lymphocytes (%) (Auto) 18 % (24-48) Monocytes (%) (Auto) 5 % (0-9) Eosinophils (%) (Auto) 3 % (0-3) Basophils (%) (Auto) 0 % (0-3) Neutrophils # (Auto) 4.6 x10^3/uL (1.8-7.7) Lymphocytes # (Auto) 1.1 x10^3/uL (1.0-4.8) Monocytes # (Auto) 0.3 x10^3/uL (0.0-1.1) Eosinophils # (Auto) 0.2 x10^3/uL (0.0-0.7) Basophils # (Auto) 0.0 x10^3/uL (0.0-0.2) Erythrocyte Sedimentation Rate 5 (0-25) Maternal Serum HCG Beta Subunit < 1 mIU/mL (0-5) Sodium Level 139 mmol/L (136-145) Potassium Level 3.5 mmol/L (3.5-5.1) Chloride Level 104 mmol/L (98-107) Carbon Dioxide Level 27 mmol/L (21-32) Anion Gap 8 (6-14) Blood Urea Nitrogen 15 mg/dL (7-20) Creatinine 1.0 mg/dL (0.6-1.0) Estimated GFR (Cockcroft-Gault) 62.1 BUN/Creatinine Ratio 15 (6-20) Glucose Level 95 mg/dL (70-99) Calcium Level 8.7 mg/dL (8.5-10.1) Total Bilirubin 0.4 mg/dL (0.2-1.0) Aspartate Amino Transf (AST/SGOT) 18 U/L (15-37) Alanine Aminotransferase (ALT/SGPT) 23 U/L (14-59) Alkaline Phosphatase 60 U/L (46-116) Troponin I Quantitative < 0.017 ng/mL (0.000-0.055) < 0.017 ng/mL (0.000-0.055) C-Reactive Protein, Quantitative 1.3 mg/L (0-3.3) NO-Vgi-Y-Type Natriuretic Peptide 24 pg/mL (0-124) Total Protein 7.9 g/dL (6.4-8.2) Albumin 3.8 g/dL (3.4-5.0) Albumin/Globulin Ratio 0.9 (1.0-1.7) SARS-CoV-2 RNA (SAMSON) Negative (Negative) SARS-CoV-2 Antigen (Rapid) Negative (NEGATIVE) Laboratory Tests Test 07/18/21 08:40 07/18/21 10:30 07/18/21 14:40 White Blood Count 6.2 x10^3/uL (4.0-11.0) Red Blood Count 4.59 x10^6/uL (3.50-5.40) Hemoglobin 13.5 g/dL (12.0-15.5) Hematocrit 40.0 % (36.0-47.0) Mean Corpuscular Volume 87 fL (79-100) Mean Corpuscular Hemoglobin 29 pg (25-35) Mean Corpuscular Hemoglobin Concent 34 g/dL (31-37) Red Cell Distribution Width 14.0 % (11.5-14.5) Platelet Count 221 x10^3/uL (140-400) Neutrophils (%) (Auto) 74 % (31-73) Lymphocytes (%) (Auto) 18 % (24-48) Monocytes (%) (Auto) 5 % (0-9) Eosinophils (%) (Auto) 3 % (0-3) Basophils (%) (Auto) 0 % (0-3) Neutrophils # (Auto) 4.6 x10^3/uL (1.8-7.7) Lymphocytes # (Auto) 1.1 x10^3/uL (1.0-4.8) Monocytes # (Auto) 0.3 x10^3/uL (0.0-1.1) Eosinophils # (Auto) 0.2 x10^3/uL (0.0-0.7) Basophils # (Auto) 0.0 x10^3/uL (0.0-0.2) Erythrocyte Sedimentation Rate 5 (0-25) Maternal Serum HCG Beta Subunit < 1 mIU/mL (0-5) Sodium Level 139 mmol/L (136-145) Potassium Level 3.5 mmol/L (3.5-5.1) Chloride Level 104 mmol/L (98-107) Carbon Dioxide Level 27 mmol/L (21-32) Anion Gap 8 (6-14) Blood Urea Nitrogen 15 mg/dL (7-20) Creatinine 1.0 mg/dL (0.6-1.0) Estimated GFR (Cockcroft-Gault) 62.1 BUN/Creatinine Ratio 15 (6-20) Glucose Level 95 mg/dL (70-99) Calcium Level 8.7 mg/dL (8.5-10.1) Total Bilirubin 0.4 mg/dL (0.2-1.0) Aspartate Amino Transf (AST/SGOT) 18 U/L (15-37) Alanine Aminotransferase (ALT/SGPT) 23 U/L (14-59) Alkaline Phosphatase 60 U/L (46-116) Troponin I Quantitative < 0.017 ng/mL (0.000-0.055) < 0.017 ng/mL (0.000-0.055) C-Reactive Protein, Quantitative 1.3 mg/L (0-3.3) SF-Jqh-T-Type Natriuretic Peptide 24 pg/mL (0-124) Total Protein 7.9 g/dL (6.4-8.2) Albumin 3.8 g/dL (3.4-5.0) Albumin/Globulin Ratio 0.9 (1.0-1.7) SARS-CoV-2 RNA (SAMSON) Negative (Negative) SARS-CoV-2 Antigen (Rapid) Negative (NEGATIVE) Brief Hospital Course Ms Crowder is a 36yo female with PMHx GERD on omeprazole, celiac dz, migraines (on Aimovig monthly), hypothyroidism who presents to ED via private vehicle follow-up accompanied by her complaining of substernal chest pain radiating to her back. Pain is sharp with some associated dyspnea on exertion and fatigue. Rated 3 out of 10 at worst. Relieved with rest. Initial onset was 1900 on 07/17/2021 after dinner. She does note that she had her COVID-19 booster vaccination at 1300 on 07/17/2021 She took her home omeprazole assuming this was likely related to reflux but awoke with the pain still present and substernal with new radiation to her left scapula with associated nausea and dyspnea on exertion and therefore came to the ED for further assessment. She does note a family history of coronary artery disease in her maternal grandfather and hypertension in her mother and lupus in her paternal aunt and multiple sclerosis in her paternal grandfather. She has never seen a superintendent building for her GERD and has been maintained on 20 mg of omeprazole which she tried to get off of 8 months ago when recurrence of her GERD symptoms and increase the dosing to 40 mg on her own. WBC 6.2, Hb 13.5, platelets 221, NA 139, K3.5, BUN 15, CR 1, hCG negative, troponin 0, NT proBNP 24. EKG rate of 76 bpm sinus with significant baseline artifact no significant ST segment abnormalities or T wave inversions. QTC 411 otherwise normal axes and intervals Chest radiograph no acute abnormalities CTPA with no acute pulmonary embolism. Discussed with the ED physician to admit for cardiac observation with cardiology consultation. Discussed with cardiology CARDIAC CATH LAB RADIOLOGY TECHNOLOGIST as well. ESR 5 CRP 1.3, troponin trended out to 0 COVID-19 PCR negative and her pain improved with IV PPI advised PPI twice daily and scheduled for outpatient GI follow up. Seen by cardiology in consultation as well. On repeat evaluation chest pain resolved. Echo performed: The left ventricular systolic function is normal. The ejection fraction is 55-60%. There is normal LV segmental wall motion. There is no evidence of significant pericardial effusion. Repeat physical exam: General: Alert, Oriented X3, Cooperative, no distress HEENT: Atraumatic, PERRLA, EOMI, Mucous membr. moist/pink, Other (Left eye lateral strabismus) Lungs: Clear to auscultation, Normal air movement Heart: S1S2, RRR, no thrills, no rubs, no gallops, no murmurs Abdomen: Normal bowel sounds, Soft, No tenderness, No hepatosplenomegaly, No masses Rectal Exam: not examined Extremities: No clubbing, No cyanosis, No edema, Normal pulses, No tenderness/swelling Skin: No rashes, No breakdown, No significant lesion Neuro: Normal gait, Normal speech, Strength at 5/5 X4 ext, Normal tone, Sensation intact, Cranial nerves 3-12 NL, Reflexes 2+ Psych/Mental Status: Mental status NL, Mood NL Problem list: Chest pain -atypical for cardiac. Seems to be related to severe GERD. Ruled out myocarditis with inflammatory markers troponins echocardiogram cardiology consultation Shortness of breath - possibly related to above and LPRD as well as some anxiety related to COVID 19 booster shot GERD - on PPI, given outpatient GI referral given this may be more severe with possible LPRD Migraines - counseled on cardiac side effects with triptan use. Has monthly Aimovig injections Hypothyroidism - on levothyroxine Mood disorder NOS - cont zoloft Celiac dz? - cont gluten free diet Greater than 135 minutes spent on same day admit and d/c Discharge Information Condition at Discharge: Improved Follow Up: Weeks (1) Disposition/Orders: D/C to Home Scheduled Lansoprazole (Lansoprazole) 30 Mg Capsule., 30 MG PO DAILY for GERD for 30 Days, #30 Prescribed by: CATHERINE TEJADA MD on 07/18/21 4702 Justicifation of Admission Dx: Justifications for Admission: Justification of Admission Dx: No CATHERINE TEJADA MD Jul 18, 2021 16:53
--- NOTE | 2021-07-18 19:23 | NUR ---
Discharge Note: [facility] Discharge instructions and discharge home medications reviewed with the patient and a copy given. All questions have been answered and understanding verbalized. The following instructions and handouts were given: Home meds as directed Follow up with Gi specialist as scheduled Follow up with PCP in weeks Discontinued lines and drains: peripheral IV intact, patient tolerated removal, no coplications noted Patient discharged to home with self care accompanied by the spouse at 1745
== END 2021-07-18 17:45 | disposition home or self-care (01) ==
LOC: ER 08:21 → 5 SOUTH 14:10 → INTOOBSV 14:10
PROVIDERS: ADMIT Internal Medicine; ATTEND Internal Medicine
DX: R07.89 Other chest pain (principal); Z20.822 Contact with and (suspected) exposure to COVID-19; I48.92 Unspecified atrial flutter; G43.909 Migraine, unspecified, not intractable, without status migrainosus; K90.0 Celiac disease; K21.9 Gastro-esophageal reflux disease without esophagitis; E03.9 Hypothyroidism, unspecified; F39 Unspecified mood [affective] disorder; H50.9 Unspecified strabismus; J98.11 Atelectasis; R06.02 Shortness of breath; R06.00 Dyspnea, unspecified; Z79.82 Long term (current) use of aspirin
CPT/HCPCS: 36415; 71045; 71275; 80053; 83880; 84484; 84702; 85025; 85651; 86140; 87426; 93005; 93306; 99285; G0378; Q9967; U0003; U0005; G0379